=== PATIENT | female | born 1965 | race American Indian/Alaskan Native ===

== ENCOUNTER 2018-02-07 11:43 | Emergency (ER) | payer SELFPAY ==
[2018-02-07 12:11] VITALS: BP 99/53
--- NOTE | 2018-02-07 12:56 | Emergency Department Report ---
Chief Complaint: Urogenital-Female Stated Complaint: ABDOMINAL PAIN Time Seen by Provider: 02/07/18 12:34 - HPI History of Present Illness: This is a 52-year-old female nontoxic, well nourished in appearance, no acute signs of distress presents to the ED for STD check-up. Patient stated she does not have any symptoms. Patient denies any vaginal discharge, lesions, or bleeding. Patient denies any fever, chills, nausea, vomiting, chest pain, short of breath, abdominal pain, back pain, stiff neck or headache. Patient denies any urinary symptoms. Patient denies any allergies or past medical history. - Exam Vital Signs: Vital Signs 02/07/18 12:08 Temperature 97.9 F Pulse Rate 84 Respiratory 16 Rate Blood Pressure 99/53 O2 Sat by Pulse 98 Oximetry Physical Exam: GENERAL: The patient is a well-developed, well-nourished in no apparent distress. Patient is alert and acting appropriately for age. Alert and oriented 3, no apparent distress, normal gait, atraumatic. LUNGS: Clear to auscultation. Non labor breathing. No intercostal retractions. Symmetrical with respiration, no wheezing, no rales, or crackles. HEART: Regular rate and rhythm without murmur, rubs or gallops. No reproducible. S1, S2 present, regular rate and rhythm without murmur, no rubs, no gallops. ABDOMEN: Soft, nontender, and nondistended. Positive bowel sounds. No hepatosplenomegaly was noted. No guarding or rebound tenderness, negative epigastric bruit. Negative psoas sign, negative serna sign, negative McBurneys sign MSE screening note: Focused history and physical exam performed. Due to findings the following was ordered: ED Medical Decision Making - Medical Decision Making This is a 52-year-old female that presents with nonmedical emergency. Patient is stable and was examined by me. Patient is asymptomatic and denies any symptoms. Patient states he just wants to be tested for STD. Supervisor [employer] has approached patient for a co-pay but patient refused. I will refer the patient [facility] and health Department. At time of discharge, the patient does not seem toxic or ill in appearance. No acute signs of distress noted. Patient agrees to discharge treatment plan of care. No further questions noted by the patient. ED Disposition for MSE Clinical Impression: Possible exposure to STD Disposition: MED SCREENING EXAM-LEFT Is pt being admited?: No Condition: Stable Additional Instructions: Follow-up with a primary care doctor in 3-5 days or if symptoms worsen and continue return to emergency room as soon as possible. Referrals: PRIMARY CARE,MD [Primary Care Provider] - 3-5 Days [facility] [Outside] - 3-5 Days [facility] [Outside] - 3-5 Days
== END 2018-02-07 12:45 | disposition left against medical advice (07) ==
LOC: ED 11:43
DX: Z04.8 Encounter for examination and observation for other specified reasons (principal)
CPT/HCPCS: 99281

== ENCOUNTER 2019-10-11 11:31 | Outpatient (CLI) | payer OTHER ==
--- NOTE | 2019-10-11 15:26 | XRay Report ---
LUMBAR SPINE. INDICATION / CLINICAL INFORMATION: BACK PAIN COMPARISON: None available. FINDINGS: There are 5 nonrib-bearing lumbar vertebral bodies. No evidence for vertebral body fracture or sublux ation. Intervertebral disc heights are well-maintained. No significant degenerative change is identif ied. IMPRESSION: Unremarkable lumbar spine radiograph. No evidence of acute osseous injury or significant degenerative change. Signer Name: Rylan Almonte MD Signed: 10/11/2019 3:21 PM Workstation Name: [id number]
--- NOTE | 2019-10-11 15:28 | XRay Report ---
RIGHT HAND INDICATION / CLINICAL INFORMATION: RIGHT HAND PAIN COMPARISON: None available. FINDINGS: Fundal and lateral radiograph of the hip labeled right were obtained. There is no evidence of fractur e or dislocation. Joint spaces appear preserved without significant degenerative change. IMPRESSION: Unremarkable right hand radiographs. No evidence of acute osseous injury or significant degenerative change. Signer Name: Rylan Almonte MD Signed: 10/11/2019 3:24 PM Workstation Name: [id number]
== END 2019-10-11 11:32 | disposition home or self-care (01) ==
LOC: XRAY 11:31
PROVIDERS: ATTEND Internal Medicine
DX: M79.641 Pain in right hand (principal); M54.9 Dorsalgia, unspecified; F43.10 Post-traumatic stress disorder, unspecified; F31.9 Bipolar disorder, unspecified; R42 Dizziness and giddiness; F32.9 Major depressive disorder, single episode, unspecified
CPT/HCPCS: 72100